=== PATIENT | female | born 1960 | race Caucasian/White ===

== ENCOUNTER → 2024-12-10 10:28 | Outpatient (CLI) | payer MEDICARE, OTHER, SELFPAY ==
--- NOTE | 2024-12-10 10:32 | DI.MRI.S_ITS ---
PROCEDURE: MR CERVICAL SPINE WO CON INDICATIONS: Radiculopathy, cervical region TECHNIQUE: Noncontrast sagittal T1 spin echo and T2 fast spin echo, sagittal STIR, foraminal oblique sagittal T2 fast spin echo, and axial gradient echo or T2 fast spin echo through the cervical spine. COMPARISON: None. FINDINGS: Image quality: This examination is limited by involuntary motion artifact. Alignment and Curvature: There is overall straightening of the normal cervical lordosis. Minimal retrolisthesis can be seen at C5-C6. Bone Marrow: Marrow demonstrates normal overall signal. Spinal Cord: Visualized spinal cord has normal size and signal. No cerebellar tonsillar herniation. Paraspinous Soft Tissues: No paravertebral masses. Prevertebral soft tissues are normal in thickness. C2-C3: The disc height is well-preserved. Loss of disc signal is seen at this level. Moderate generalized disc osteophyte complex is seen. There is at least moderate right-sided and moderate left-sided facet hypertrophy. There is at least moderate bilateral neural foraminal narrowing, right worse than left. Mild central canal narrowing is seen. C3-C4: Mild loss of disc height is seen. Loss of disc signal is seen. Moderate generalized disc osteophyte complex is seen. There is [id number] right- sided and moderate left-sided facet hypertrophy. There is moderate to severe bilateral neural foraminal narrowing seen. Mild to moderate central canal narrowing is seen. Mild mass effect can be seen upon the ventral spinal cord. C4-C5: Moderate loss of disc height is seen. Loss of disc signal is seen. Moderate generalized disc osteophyte complex is seen. There is a superimposed central disc osteophyte protrusion. Uncovertebral joint hypertrophy is seen at this level. There is moderate to severe right-sided and at least moderate left-sided neural foraminal narrowing. Mild to moderate central canal narrowing is seen, with mass effect upon the ventral spinal cord. C5-C6: [id number] loss of disc height and disc signal can be seen. Moderate disc osteophyte complex is seen, which is eccentric to the right. Uncovertebral joint hypertrophy is seen at this level. There is a central/right disc osteophyte protrusion. Moderate facet joint hypertrophy is seen. There is moderate to severe right- sided and at least moderate left-sided neural foraminal narrowing. Moderate central canal narrowing is seen. There is associated mass effect upon the ventral spinal cord. C6-C7: Moderate loss of disc height is seen. Loss of disc signal is seen. Moderate disc osteophyte complex is seen, with a central disc osteophyte protrusion. Mild facet joint hypertrophy is seen. There is at least moderate bilateral neural foraminal narrowing, right worse than left. Mild to moderate central canal narrowing is seen. C7-T1: The disc height and disk signal are relatively well-preserved. A mild degree of generalized disc osteophyte complex is seen. Moderate facet joint hypertrophy is seen. Mild bilateral neural foraminal narrowing is seen. No central canal narrowing is seen. IMPRESSION: Multiple levels of cervical spine degenerative change can be seen, which are overall worst at the C5-C6 level. Straightening of the normal cervical lordosis is seen, which is commonly observed in patients with muscular spasm. Dictated by: Bobo Rojo M.D. on 12/10/2024 at 15:56 Approved by: Bobo Rojo M.D. on 12/10/2024 at 16:00
== END ==
LOC: MRI 10:32
PROVIDERS: PCP Physician Assistant; Referring Provider Physician Assistant; Visit Provider Physician Assistant
DX: M47.22 Other spondylosis with radiculopathy, cervical region (principal)
CPT/HCPCS: 72141